=== PATIENT | male | born 2000 | race Two or more races ===

== ENCOUNTER 2021-09-18 02:42 | Emergency (ER) | payer SELFPAY ==
[~2021-09-18] VITALS: Ht 167.6 cm; Wt 70.8 kg
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
[2021-09-18] MEDS ORDERED: IBUPROFEN 400 MG TABLET ONE (03:08)
[2021-09-18] MEDS: IBUPROFEN 400 MG TABLET PO ONE (03:12)
[2021-09-18 04:00] VITALS: BP 136/70
--- NOTE | 2021-09-18 04:10 | NUR ---
Patient discharged to senior living in stable condition. Written and verbal after care instructions given. Patient verbalizes understanding of instruction.
== END 2021-09-18 04:30 | disposition home or self-care (01) ==
LOC: ER 02:47
DX: S20.219A Contusion of unspecified front wall of thorax, initial encounter (principal); S50.12XA Contusion of left forearm, initial encounter; S83.92XA Sprain of unspecified site of left knee, initial encounter; V89.2XXA Person injured in unspecified motor-vehicle accident, traffic, initial encounter; Y93.89 Activity, other specified; Y92.89 Other specified places as the place of occurrence of the external cause; Y99.8 Other external cause status
CPT/HCPCS: 71045-TC; 73090-TC; 73564-TC